=== PATIENT | male | born 1960 | race Caucasian/White ===

== ENCOUNTER 2019-08-15 11:49 | Inpatient (IN) | payer OTHER ==
[~2019-08-15] VITALS: Ht 182.9 cm; Wt 100.6 kg
[2019-08-15] VITALS (441 sets, daily range): BP systolic 96–97; BP diastolic 61–85; PULSE 118–133; TEMP 98.2–99.2; O2SAT 71–100
[2019-08-15 12:15] LABS: INR 1.4 (0.8-3.0); PROTHROMBIN TIME 16.9 SECONDS (9.7-12.8)
[2019-08-15 12:18] LABS: MEAN CELL VOLUME 92 fl (80.0-100.0); MEAN CORPUSCULAR HGB CONC 34 g/dl (33.0-37.0); MEAN PLATELET VOLUME 10.2 fl (7.4-10.4); PLATELET COUNT 236 K/mm3 (130-400); RED BLOOD COUNT 5.91 M/mm3 (4.20-5.60); REDCELL DISTRIBUTION WIDTH-CV 22.4 % (11.5-14.5)
[2019-08-15 12:21] LABS: HEMATOCRIT 54.5 % (42.0-52.0); HEMOGLOBIN 18.3 g/dl (13.5-18.0); MEAN CORPUSCULAR HEMOGLOBIN 31 pg (27.0-31.0)
[2019-08-15 12:29] LABS: ALBUMIN 3.5 gm/dL (3.5-5.0); BILIRUBIN,TOTAL 9.4 mg/dL (0.0-1.0); CALCIUM 8.7 mg/dL (8.4-10.2); CREATININE, serum 1.1 (0.66-1.25); POTASSIUM 4.5 mmol/L (3.4-5.0); TOTAL PROTEIN 7.6 gm/dL (6.4-8.2)
[2019-08-15 12:42] LABS: ANISOCYTOSIS 2+; BAND 7 % (0-10); LYMPHOCYTE 4 % (20.0-51.0); NEUTROPHILS 75 % (42.0-75.2); PLATELET ESTIMATE NORMAL (NORMAL); TROPONIN-I 0.042 ng/mL (0.000-0.035)
--- NOTE | 2019-08-15 13:47 | NUR ---
Pt admitted to ICU bed 6 at this time from ED. Pt arrived via stretcher and placed on patient monitor upon arrival. Pt denies pain or any other discomforts at this time. Pt oriented to room environment/surroundings. Tamra Fofana APRN, present in unit and notified on Pt's arrival. Bed in low position, call light within reach, will continue to monitor.
[2019-08-15 14:14] LABS: MAGNESIUM 2.1 mg/dL (1.6-2.3)
[2019-08-15 14:42] LABS: COLLECTION METHOD CLEAN CATCH
[2019-08-15 14:45] LABS: TSH w REFLEX 5.82 uIU/mL (0.465-4.680)
[2019-08-15 14:52] LABS: PH 6 (5-8); SQUAMOUS EPITHELIAL None Seen /hpf; URINE APPEARANCE Clear; URINE BACTERIA None Seen /hpf; URINE BILIRUBIN Negative (NEGATIVE); URINE BLOOD Negative (NEGATIVE); URINE COLOR Yellow; URINE GLUCOSE Negative (NEGATIVE); URINE KETONE Negative (NEGATIVE); URINE LEUKOCYTE ESTERASE Negative (NEGATIVE); URINE NITRATE Negative (NEGATIVE); URINE PROTEIN(semi-quant) Negative (NEGATIVE); URINE RBC None Seen /hpf; URINE UROBILINOGEN >=4.0 mg/dL (NEGATIVE)
[2019-08-15] MEDS ORDERED: ASPIRIN 81M81 MG/TA2 PO (15:45)
--- NOTE | 2019-08-15 18:03 | NUR ---
Admission assessment complete at this time. Plan of care reviewed at bedside with patient. Additional time taken to address any other needs or concerns. Vitals stable at this time. Denies pain or any other discomforts. Bed in low position, call light within reach, will continue to monitor.
--- NOTE | 2019-08-15 19:08 | NUR ---
Bedside report given to ADAM Wu.
[2019-08-16] VITALS (751 sets, daily range): BP systolic 90–117; BP diastolic 69–97; PULSE 102–136; TEMP 97.5–99.3; O2SAT 48–100
[2019-08-16 05:37] LABS: HEMATOCRIT 48.7 % (42.0-52.0); HEMOGLOBIN 16.5 g/dl (13.5-18.0); MEAN CELL VOLUME 90 fl (80.0-100.0); MEAN CORPUSCULAR HEMOGLOBIN 30 pg (27.0-31.0); MEAN CORPUSCULAR HGB CONC 34 g/dl (33.0-37.0); MEAN PLATELET VOLUME 10.1 fl (7.4-10.4); PLATELET COUNT 225 K/mm3 (130-400); RED BLOOD COUNT 5.43 M/mm3 (4.20-5.60); REDCELL DISTRIBUTION WIDTH-CV 22.3 % (11.5-14.5)
[2019-08-16 05:47] LABS: ALBUMIN 2.7 gm/dL (3.5-5.0); BILIRUBIN,TOTAL 7.3 mg/dL (0.0-1.0); CREATININE, serum 0.96 (0.66-1.25); MAGNESIUM 1.9 mg/dL (1.6-2.3); PHOSPHOROUS 3.6 mg/dL (2.5-4.5); POTASSIUM 3.4 mmol/L (3.4-5.0)
[2019-08-16 06:41] LABS: ANISOCYTOSIS 2+; BAND 3 % (0-10); EOSINOPHIL 1 % (0-4); LYMPHOCYTE 2 % (20.0-51.0); NEUTROPHILS 81 % (42.0-75.2); PLATELET ESTIMATE NORMAL (NORMAL)
--- NOTE | 2019-08-16 07:00 | NUR ---
Report recieved from ADAM Wu. Patient resting in bed at this time and denies needs. Care assumed.
--- NOTE | 2019-08-16 07:00 | NUR ---
Report given to ADAM Ramos.
--- NOTE | 2019-08-16 07:10 | NUR ---
Dr. Bautista rounds at this time. POC discussed with patient to include tentative plan for KELLY with cardioversion in AM. Will postpone until tomorrow to accomodate thoracentesis today.
--- NOTE | 2019-08-16 09:37 | NUR ---
Dr. Ramey rounds at this time. Orders as entered CPOE.
--- NOTE | 2019-08-16 11:12 | NUR ---
Initial visit; Patient thanked Utility Gelatin Maker for stopping though declined spiritual care.
--- NOTE | 2019-08-16 11:32 | NUR ---
GOGGLES ASSEMBLER student met with the patient to complete initial intake. The patient lives in [place] with his sister, Connie . The patient does not use DME and reports independence with ADLs. The patient does not have a PCP and the patient requested GOGGLES ASSEMBLER student contact Connie, to discuss PCP and pharmacy. GOGGLES ASSEMBLER student contacted Connie. The patient is to see Renetta Arce with [facility] in for follow-up appointments and patient is to receive medications at [facility] in . The patient does not have advanced directives in the EMR and was not interested in DPOA-HC form at this time. director of women's services will continue to follow to ensure a safe discharge.
[2019-08-16 11:55] LABS: INR 1.4 (0.8-3.0); PROTHROMBIN TIME 15.9 SECONDS (9.7-12.8)
[2019-08-16 11:58] LABS: PARTIAL THROMBOPLASTIN TIME 35.7 SECONDS (26.0-37.0)
--- NOTE | 2019-08-16 15:30 | NUR ---
Bedside thoracentesis performed by Dr. Casiano with US tech at bedside. Patient signed consent obtained by MD and tech.
[2019-08-16 16:33] LABS: PLEURAL FLUID RBC 20000 /mm3 (0-0); PLEURAL FLUID WBC 6665 /mm3
[2019-08-16 16:35] LABS: PLEURAL FLUID COLOR AMBER
[2019-08-16 16:36] LABS: GLUCOSE,PLEURAL FLUID 60 mg/dL; PLEURAL FLUID APPEARANCE HAZY; TOTAL PROTEIN,PLEURAL FLUID 2.7 gm/dL
--- NOTE | 2019-08-16 19:15 | NUR ---
RECEIVED REPORT FROM ADAM MARTIN. PT SITTING UP IN CHAIR FINISHING DINNER. 2L VIA NC ON. VSS. HR NOTED TO BE 120-130s. WILL MONITOR CLOSELY. CALL LIGHT WITHIN REACH. NO ACUTE S/S OF DISTRESS NOTED.
[2019-08-17] VITALS (571 sets, daily range): BP systolic 90–118; BP diastolic 65–100; PULSE 86–113; TEMP 98–98.3; O2SAT 51–100
[2019-08-17 04:51] LABS: HEMATOCRIT 45.4 % (42.0-52.0); HEMOGLOBIN 15.4 g/dl (13.5-18.0); MEAN CELL VOLUME 91 fl (80.0-100.0); MEAN CORPUSCULAR HEMOGLOBIN 31 pg (27.0-31.0); MEAN CORPUSCULAR HGB CONC 34 g/dl (33.0-37.0); MEAN PLATELET VOLUME 10.2 fl (7.4-10.4); PLATELET COUNT 203 K/mm3 (130-400); RED BLOOD COUNT 4.99 M/mm3 (4.20-5.60); REDCELL DISTRIBUTION WIDTH-CV 21.8 % (11.5-14.5)
--- NOTE | 2019-08-17 05:00 | NUR ---
DISCUSSED WITH BUD, SHELDON, EDUARD, AND NOTIFIED DR TYLER ABOUT PT'S SOFT SBP 85-92 THORUGHOUT THE NIGHT. PT EASILY AROUSABLE. NEW ORDERS RECEIVED. SEE MAR.
[2019-08-17 05:05] LABS: ALBUMIN 2.5 gm/dL (3.5-5.0); BILIRUBIN,TOTAL 5.5 mg/dL (0.0-1.0); CALCIUM 7.7 mg/dL (8.4-10.2); CREATININE, serum 0.91 (0.66-1.25); PHOSPHOROUS 3.5 mg/dL (2.5-4.5); POTASSIUM 3.5 mmol/L (3.4-5.0); TOTAL PROTEIN 5.5 gm/dL (6.4-8.2)
[2019-08-17 05:44] LABS: INR 1.4 (0.8-3.0); PROTHROMBIN TIME 16.3 SECONDS (9.7-12.8)
[2019-08-17 06:03] LABS: ANISOCYTOSIS 2+; BAND 6 % (0-10); LYMPHOCYTE 6 % (20.0-51.0); NEUTROPHILS 74 % (42.0-75.2); PLATELET ESTIMATE NORMAL (NORMAL)
--- NOTE | 2019-08-17 09:10 | NUR ---
CONTACT MADE WITH ANESTHESIA AND US TO COORDINATE KELLY/CARDIOVERSION. PROCEDURE PLANNED FOR AROUND 929. DR CASTILLO AWARE. CONSENT SIGNED AND PLACED ON CHART.
--- NOTE | 2019-08-17 09:40 | NUR ---
KELLY/CARDIOVERSION STARTED BY DR CASTILLO, RUDOLPH RAIN CRNA, [facility], AND FRANCESCA MEDINA. SEDATION PERFORMED BY DAISY. DURING KELLY DR CASTILLO STATES THERE IS AN ABNORMALITY THAT RESEMEBLES AN EMBOLISM SO THEY WILL NOT BE PERFORMING CARDIOVERSION. PT TOLERATED PROCEDURE. PT RECOVERED WELL. PT DROWSY BUT AROUSABLE.
--- NOTE | 2019-08-17 14:35 | NUR ---
PT BEGAN C/O SOB WHILE SITTING UP IN CHAIR. I ASKED PATIENT IF HE WAS FEELING OK AND HE STATED "NO". HE THEN TOLD ME IT FELT LIKE HIS HEART WAS MAKING HIM SHORT OF BREATH. PATIENT NOTED TO BY CYANOTIC TO NOSE, LOWER EXTREMITIES, AND FINGER TIPS. RETURNED PATIENT TO BED D/T SOB. CALLED DR CASTILLO AND HE STATED TO GIVE PATIENT LASIX 20MG IV NOW AND DIGOXIN 0.5MG. PATIENT'S HR AROUND 120, BP 101/90. RESP 26, O2 SAT 90% ON 2L. I RETURNED PATIENT TO BED AND GAVE MEDS PATIENT STILL LOOKED ACUTELY ILL, TACHYPNEIC, AND CYANOTIC. LUNG SOUNDS VERY DIMINISHED TO LEFT LUNG COSTELLO. RIGHT LUNG COSTELLO CLEAR TO UPPER LOBES, DIM TO BASE. DR FAITH ON UNIT AT TIME. I ASKED DR FAITH IF HE WOULD COME SEE PATIENT AND STATED THAT HE LOOKED BADLY. DR FAITH STATED HE IS NOT CONSULTED ON PATIENT SO HE CANNOT COME SEE PATIENT. I THEN CALLED DR CASTILLO AND UPDATED HIM THAT PATIENT APPEARS WORSE. BP 90S, HR 125, RESP 30, O2 SAT 88% ON 4L NC. PT CONTINUES TO HAVE INCREASED WORK OF BREATHING. DR CHILEL CALLED. STAT CHEST XRAY ORDERED ALONG WITH EKG. DR CHILEL ARRIVED TO ASSESS PATIENT SHORTLY AFTER CALLING HIM. ONCE XRAY OBTAINED DR CHILEL AND DR CASTILLO PRESENT AND CONFIRMED PATIENT HAS PNEUMOTHORAX TO LEFT LUNG. DR CHILEL WENT OVER TO SPEAK WITH RADIOLOGY FOR CHEST TUBE INSERTION. IV TO LEFT FORERAM REMOVED IT BEGAN LEAKING, IV TO RIGHT AC BEGAN LEAKING. 20G INSERTED TO LEFT AC. ELIAS PLACED. SPOKE WITH OUSMANE MEDINA REGARDING PATIENT. TRANSPORTED PATIENT VIA BED WITH TRANSPORT MONITOR TO RADIOLOGY FOR CT GUIDED CHEST TUBE INSERTION.
--- NOTE | 2019-08-17 15:00 | NUR ---
pt here per bed. Pt transferred to ct table in supine position. Monitor in place from ICU. Continued to monitor. BP's increased to every 5 minutes.
--- NOTE | 2019-08-17 15:05 | NUR ---
Dr Casiano into room and talks with pt.
--- NOTE | 2019-08-17 15:16 | NUR ---
Chest tube placed by Dr Casiano. Dr Casiano pulling air and yellow drainage from left lung. Dr Casiano wants pt moved to bed and sitting upright to continue to remove air from lung.
--- NOTE | 2019-08-17 15:35 | NUR ---
PATIENT RETURNED VIA BED BY OUSMANE MEDINA. PATIENT SITTING UP AND APPEARED MUCH MORE RELAXED. PT NO LONGER HAVING DIFFICULTY BREATHING. HR UPON RETURN 105, RESP 10, O2 SAT 99% ON 2L NC, BP 119/91. PT HAS PLEUREX DRAIN IN PLACE TO LEFT ANTERIOR CHEST. QUINCY WITH AIVS PRESENT TO INSERT PICC LINE.
[2019-08-17 17:01] LABS: PARTIAL THROMBOPLASTIN TIME 34.2 SECONDS (26.0-37.0)
--- NOTE | 2019-08-17 19:10 | NUR ---
RECEIVED REPORT FROM ADAM MA. PT LYING IN BED RESTING WITH EYES CLOSE BUT DOES SPEAK UP WITH NURSES DURING SHFIT CHANGE. DENIES ANY NEEDS AT THIS TIME. VSS. CALL LIGHT WITHIN REACH. FC PATENT AND DRAINING TO GRAVITY. PT ON 2L VIA NC.
[2019-08-18] VITALS (750 sets, daily range): BP systolic 92–111; BP diastolic 61–76; PULSE 75–108; TEMP 98.2–99.8; O2SAT 82–100
[2019-08-18 03:43] LABS: BASO % 0.2 % (0.0-2.0); EOS # 0.2 (0.0-0.7); EOS % 1.6 % (0-4.0); GRAN # 9.5 (1.4-6.5); GRAN % 73.9 % (42.2-75.2); HEMATOCRIT 42.9 % (42.0-52.0); HEMOGLOBIN 14.7 g/dl (13.5-18.0); LYMPH % 7.8 % (20.0-51.0); MEAN CELL VOLUME 89 fl (80.0-100.0); MEAN CORPUSCULAR HEMOGLOBIN 30 pg (27.0-31.0); MEAN CORPUSCULAR HGB CONC 34 g/dl (33.0-37.0); MEAN PLATELET VOLUME 10.1 fl (7.4-10.4); MONO % 15.9 % (1.7-9.3); PLATELET COUNT 211 K/mm3 (130-400); RED BLOOD COUNT 4.84 M/mm3 (4.20-5.60); REDCELL DISTRIBUTION WIDTH-CV 21.2 % (11.5-14.5)
[2019-08-18 03:53] LABS: CALCIUM 7.6 mg/dL (8.4-10.2); CREATININE, serum 1.06 (0.66-1.25); MAGNESIUM 2.1 mg/dL (1.6-2.3); POTASSIUM 3.5 mmol/L (3.4-5.0)
[2019-08-18 09:44] LABS: ALBUMIN 2.6 gm/dL (3.5-5.0); BILIRUBIN,TOTAL 5.4 mg/dL (0.0-1.0); CALCIUM 7.5 mg/dL (8.4-10.2); CREATININE, serum 1.01 (0.66-1.25); POTASSIUM 4.3 mmol/L (3.4-5.0); TOTAL PROTEIN 5.5 gm/dL (6.4-8.2)
--- NOTE | 2019-08-18 20:04 | NUR ---
Sitting in chair in room. Assessment complete. Bases bilaterally diminished otherwise clear. Heart sounds irregular. S1 and S2 heard. Pulses audiable with doppler, felt faint with touch. Bilateral lower leg edema +3. Trunk edema +2. Upper extremity edema +1. PICC to right upper arm has heparin infusing per protocol. Denies pain at this time. BP 90s/70s. Assisted patient back to bed at this time. Denies other needs. Call light in reach.
--- NOTE | 2019-08-18 22:15 | NUR ---
Provided patient with snack. Denies other needs at this time. Call light in reach.
--- NOTE | 2019-08-18 23:38 | NUR ---
Assessment completed. Right lower lobe crackles. Right upper lobe clear. Left lung diminshed. Denies shortness of breath. Voided 450 ml of dark yellow urine. Otherwise no changes in previous assessment. Denies pain. Call light in reach.
[2019-08-19] VITALS (500 sets, daily range): BP systolic 98–192; BP diastolic 48–79; PULSE 75–90; TEMP 97.6–98.6; O2SAT 68–100
--- NOTE | 2019-08-19 00:59 | NUR ---
No change in heparin dosing at goal. Verified by Sanna MEDINA
--- NOTE | 2019-08-19 04:41 | NUR ---
Assessment complete. Upper lobes bilaterally clear. Right lower lobe crackles. Left lower lobe diminshed. Otherwise no changed from previous assessment. Call light in reach. Denies pain.
[2019-08-19 04:53] LABS: HEMATOCRIT 41.7 % (42.0-52.0); HEMOGLOBIN 13.9 g/dl (13.5-18.0); MEAN CELL VOLUME 93 fl (80.0-100.0); MEAN CORPUSCULAR HEMOGLOBIN 31 pg (27.0-31.0); MEAN CORPUSCULAR HGB CONC 33 g/dl (33.0-37.0); MEAN PLATELET VOLUME 10.9 fl (7.4-10.4); PLATELET COUNT 263 K/mm3 (130-400); RED BLOOD COUNT 4.51 M/mm3 (4.20-5.60); REDCELL DISTRIBUTION WIDTH-CV 22.4 % (11.5-14.5)
--- NOTE | 2019-08-19 04:58 | NUR ---
Heimlich valve clamped at this time.
[2019-08-19 05:07] LABS: CALCIUM 7.3 mg/dL (8.4-10.2); CREATININE, serum 0.89 (0.66-1.25); POTASSIUM 3.4 mmol/L (3.4-5.0)
--- NOTE | 2019-08-19 06:40 | NUR ---
Patient had uneventful night. Heimlich valve clamped at 0500 as ordered. Denies needs this AM. Call light in reach.
--- NOTE | 2019-08-19 07:33 | NUR ---
Report given to ADAM Vance
[2019-08-19 11:47] LABS: INR 1.3 (0.8-3.0); PROTHROMBIN TIME 15.6 SECONDS (9.7-12.8)
--- NOTE | 2019-08-19 13:21 | NUR ---
The patient is needing Eliquis. Dr. Bautista provided a 30 day supply of this medication and it is being kept in the pharmacy department. The patient will need to take this with him at discharge. BLEACH ANALYST student informed the patient's sister, Connie. The patient has orders to the medical floor and physical therapy was ordered. BLEACH ANALYST student set-up appointment at [facility] in [place] with Renetta Arce on Thursday, 08/26 10:00 am. BLEACH ANALYST student attempted to contact Connie about the appointment, left message. child and family services worker will continue to follow.
--- NOTE | 2019-08-19 14:19 | NUR ---
THORACENTESIS COMPLETE AT THIS TIME. PER HOSPITALIST CONTINUE HEAPARIN DRIP PER PREVIOUS ORDERS. HEPARIN XA ORDERED AT THIS TIME.
--- NOTE | 2019-08-19 15:37 | NUR ---
HEPARIN XA OBTAINED @ 1500 RESULTED @ 0.04. ACCORDING TO HIGH DOSE HEPARIN DRIP PROTOCOL NO CHANGE. HEPARIN XA SCHEDULED FOR 08/19/19 @ 2100.
--- NOTE | 2019-08-19 18:56 | NUR ---
Patient was trasferred from ICU. PATIENT IS ALERT AND ORIENTED X 4. right lower and upper lung lobes sound clear. Upper and Lower left lung is silent. 4+ edema bilateral on lower extremity. Patient has chest tube on the upper left chest. Patient is on fluid restriction of 1500mL in 24hrs. Patient took last dose of potassium for today around 5pm. Patient was educated on how to use Incentive Spirometry (IS), Patient was able to demonstrate how to use the IS. Patient is on 2L of O2. Heparin drip rate from ICU was 17mL/hr. No changes made. I put an order in for Hep Xa recheck at 2100.
--- NOTE | 2019-08-19 21:00 | NUR ---
Initial shift assessment done- sitting up in chair, Up in room on own, steady on feet. Heparin drip at 17cc/hr- having a Hepxa drawn at 2130. PICC to right upper arm. Understands to use urinal so we can measure urine output-getting lasix IV
[2019-08-20 03:49] VITALS: BP 97/59; PULSE 73; TEMP 97.7
[2019-08-20 04:24] LABS: HEMATOCRIT 41.5 % (42.0-52.0); HEMOGLOBIN 13.8 g/dl (13.5-18.0); MEAN CELL VOLUME 91 fl (80.0-100.0); MEAN CORPUSCULAR HEMOGLOBIN 30 pg (27.0-31.0); MEAN CORPUSCULAR HGB CONC 33 g/dl (33.0-37.0); PLATELET COUNT 216 K/mm3 (130-400); RED BLOOD COUNT 4.57 M/mm3 (4.20-5.60); REDCELL DISTRIBUTION WIDTH-CV 21.4 % (11.5-14.5)
[2019-08-20 04:33] LABS: ALBUMIN 2.4 gm/dL (3.5-5.0); BILIRUBIN,TOTAL 3.2 mg/dL (0.0-1.0); CALCIUM 7.3 mg/dL (8.4-10.2); CREATININE, serum 0.76 (0.66-1.25); POTASSIUM 3.7 mmol/L (3.4-5.0); TOTAL PROTEIN 5.4 gm/dL (6.4-8.2)
[2019-08-20 04:59] LABS: BAND 10 % (0-10); LYMPHOCYTE 8 % (20.0-51.0); NEUTROPHILS 65 % (42.0-75.2)
--- NOTE | 2019-08-20 05:36 | NUR ---
Did sleep for a few hours during the night- VSS, heparin at 18cc/hr at this time-next Hepxa at 1030 this morning. Did have 1250cc of urine out this shift. tele on- afib-controlled rate. o2 at 2L/nc
[2019-08-20 08:40] VITALS: BP 94/49; PULSE 96; TEMP 97.6
--- NOTE | 2019-08-20 11:00 | NUR ---
HEP-XA WAS DRAWN RATE WAS WNL PER PROTOCOL ORDERS NEXT REDRAW TO BE DONE NEXT MORNING. HEP-XA ORDER PLACED.
[2019-08-20 12:00] VITALS: BP 93/66; PULSE 75; TEMP 97.4
--- NOTE | 2019-08-20 13:00 | NUR ---
DR KRISHNA INTO PT ROOM TO REMOVE CHEST TUBE. PT TOLERATED WELL. DRESSING PLACED.
[2019-08-20 16:45] VITALS: BP 91/54; PULSE 84; TEMP 98.2
[2019-08-20 20:16] VITALS: BP 101/68; PULSE 95; TEMP 98.8
--- NOTE | 2019-08-20 20:45 | NUR ---
Initial shift assessment done- Denies pain- sitting up in the chair, Has heparin drip at 18cc/hr,,will get HepXA in AM-- o2 at 2L/nc, Lung sounds decreased in LLL, Pt states is overall feeling better
[2019-08-20 23:25] VITALS: BP 97/43; PULSE 83; TEMP 97.4
[2019-08-21 03:15] VITALS: BP 102/61; PULSE 81; TEMP 98.3
--- NOTE | 2019-08-21 05:35 | NUR ---
Very QUiet night- slept in the recliner all night- no requests,, heparing drip remains at 18cc/hr- lab was here and Hepxa was just drawn. Tele Afib, rate 70,s
[2019-08-21 06:38] LABS: HEMATOCRIT 38.5 % (42.0-52.0); HEMOGLOBIN 12.8 g/dl (13.5-18.0); MEAN CELL VOLUME 92 fl (80.0-100.0); MEAN CORPUSCULAR HEMOGLOBIN 31 pg (27.0-31.0); MEAN CORPUSCULAR HGB CONC 33 g/dl (33.0-37.0); MEAN PLATELET VOLUME 10.6 fl (7.4-10.4); PLATELET COUNT 209 K/mm3 (130-400); RED BLOOD COUNT 4.19 M/mm3 (4.20-5.60); REDCELL DISTRIBUTION WIDTH-CV 21.9 % (11.5-14.5)
[2019-08-21 06:52] LABS: CALCIUM 7.4 mg/dL (8.4-10.2); CREATININE, serum 0.7 (0.66-1.25); POTASSIUM 3.6 mmol/L (3.4-5.0)
[2019-08-21 08:32] LABS: BAND 24 % (0-10); EOSINOPHIL 3 % (0-4); LYMPHOCYTE 6 % (20.0-51.0); METAMYELOCYTE 1 % (0-0); NEUTROPHILS 53 % (42.0-75.2)
[2019-08-21 08:33] LABS: ANISOCYTOSIS 2+; PLATELET ESTIMATE NORMAL (NORMAL)
[2019-08-21 08:34] VITALS: BP 97/62; PULSE 76; TEMP 97.7
[2019-08-21 08:34] LABS: TARGET CELLS 1+
[2019-08-21 13:58] VITALS: BP 87/49; PULSE 86; TEMP 98.1
[2019-08-21 18:16] LABS: COLLECTION METHOD CLEAN CATCH
[2019-08-21 18:22] LABS: PH 8 (5-8); SQUAMOUS EPITHELIAL None Seen /hpf; URINE APPEARANCE Clear; URINE BACTERIA None Seen /hpf; URINE BILIRUBIN Negative (NEGATIVE); URINE BLOOD Negative (NEGATIVE); URINE COLOR Yellow; URINE GLUCOSE Negative (NEGATIVE); URINE KETONE Negative (NEGATIVE); URINE LEUKOCYTE ESTERASE Negative (NEGATIVE); URINE NITRATE Negative (NEGATIVE); URINE PROTEIN(semi-quant) Negative (NEGATIVE); URINE UROBILINOGEN >=4.0 mg/dL (NEGATIVE); URINE WBC 0-2 /hpf
[2019-08-21 18:27] VITALS: BP 97/48; PULSE 91; TEMP 98.4
--- NOTE | 2019-08-21 18:37 | NUR ---
PT report received at bedside from [place] MEDINA. PT is noted to have heparin infusing via PICC line, with eyes open and watching TV. No s/s of distress noted. Call light within reach and PT denies pain or wants/needs at this time. Will continue to monitor.
--- NOTE | 2019-08-21 18:58 | NUR ---
PT HAD UNEVENTFUL DAY. HAS BEEN UP AMBULATING IN [place] TODAY SOME. HEP GTT HAS BEEN WNL THIS DAY AND HASNT NEEDED CHANGES. HAS BEEN TAKING MEDS WELL W/O COMPLAINTS. DISCUSSED THE NEW MEDS. HAD ASKED A COUPLE OF TIMES ABOUT IF HES ABLE TO GET RID OF IV YET, REASSURED THAT HE HIS GETTING CLOSER TO DCING THE HEP GTT DUE TO STARTING THE ELIQUIS TODAY.
--- NOTE | 2019-08-21 19:11 | NUR ---
PT REQUESTED DRESSING OVER CHEST TUBE AREA TO BE REMOVED THIS EVENING, IT HAD BEEN ON LONGER THEN 24HR. THIS NURSE REMOVED WITHOUT DRESSING NOT NOTED BLEEDING TO AREA, APPLIED BANDAID.
[2019-08-21 19:23] VITALS: BP 90/60; PULSE 94; TEMP 99.4
--- NOTE | 2019-08-21 20:42 | NUR ---
PT resting in his recliner with TV on and no s/s of distress noted. PT is A&Ox4 and is easily able to make his wants/needs known. PT has been ambulating outside of room pushing his IV pole. PT remains in stable condition at this time with no c/o pain or discomfort. Will continue to monitor. Call light within reach. PT court recording monitor was changed earlier in shift D/T telemetry reporting bad signal even after pads were assesses, changed as needed, and all pads and lines attached and secure. After changing tele box the teletypesetter operator is notified and reports that everything is looking good at this time.
--- NOTE | 2019-08-21 22:55 | NUR ---
PT resting in recliner and states that he is going to sleep in the recliner and does not wish to get into bed. Call light remains within reach and PT presents with no s/s of cardiac distress at this time. Will continue to monitor.
[2019-08-21 23:09] VITALS: BP 90/48; PULSE 84; TEMP 99
--- NOTE | 2019-08-22 01:41 | NUR ---
PT resting in recliner with eyes closed and no s/s of distress noted. Will continue to monitor.
[2019-08-22 04:03] VITALS: BP 96/55; PULSE 63; TEMP 98.2
[2019-08-22 06:27] LABS: HEMATOCRIT 36.2 % (42.0-52.0); HEMOGLOBIN 11.9 g/dl (13.5-18.0); MEAN CELL VOLUME 91 fl (80.0-100.0); MEAN CORPUSCULAR HEMOGLOBIN 30 pg (27.0-31.0); MEAN CORPUSCULAR HGB CONC 33 g/dl (33.0-37.0); MEAN PLATELET VOLUME 10.4 fl (7.4-10.4); PLATELET COUNT 230 K/mm3 (130-400); RED BLOOD COUNT 3.96 M/mm3 (4.20-5.60); REDCELL DISTRIBUTION WIDTH-CV 21.3 % (11.5-14.5)
[2019-08-22 06:44] LABS: ALBUMIN 2.5 gm/dL (3.5-5.0); CALCIUM 7.5 mg/dL (8.4-10.2); CREATININE, serum 0.8 (0.66-1.25); MAGNESIUM 2.1 mg/dL (1.6-2.3); PHOSPHOROUS 2.7 mg/dL (2.5-4.5)
[2019-08-22 07:09] LABS: BAND 8 % (0-10); EOSINOPHIL 2 % (0-4); LYMPHOCYTE 12 % (20.0-51.0); MYELOCYTE 1 % (0-0); NEUTROPHILS 72 % (42.0-75.2); PLATELET ESTIMATE NORMAL (NORMAL); TEAR DROP CELLS 1+
[2019-08-22 07:28] VITALS: BP 98/60; PULSE 79; TEMP 98
--- NOTE | 2019-08-22 07:51 | NUR ---
UPON ENTERING THE ROOM PATIENT IS SITTING UP IN THE CHAIR FINISHING UP BREAKFAST AT THIS TIME. DENIES ANY SHORTNESS OF BREATH, NAUSEA, VOMITING, OR DIZZINESS. PATIENT HAS BILATERALLY LOWER LEG EDEMA. PATIENT IS NOT RECEIVING ANY POTASSIUM THIS MORNING HIS LEVEL IS AT 4.0. LUNG SOUNDS ARE ALL CLEAR EXCEPT THE LEFT LOWER LOBE THAT IS DIMINISHED. PATIENT IS READY TO HEAD HOME!
--- NOTE | 2019-08-22 09:04 | NUR ---
SPOKE WITH DR NOVA AND HE SAID TO HOLD THE ALDACTONE WITH THE BLOOD PRESSURE AT 98/60.
--- NOTE | 2019-08-22 11:33 | NUR ---
The patient is to discharge today, 08/22. JACOB met with the patient to review discharge plan. The patient plans to stay with his brother, Hector Covarrubias. SW notified pharmacy about the patient's Eliquis. SW to fax the patient's discharge orders to [facility] in [place]. No additional needs at this time.
[2019-08-22 12:06] VITALS: BP 95/66; PULSE 78; TEMP 97.9
[2019-08-22] MEDS ORDERED: ELIQUIS 5MG PO (15:28)
[2019-08-22] MEDS ORDERED: PACERONE400 MG PO (15:29)
[2019-08-22] MEDS ORDERED: LANOXIN 0.120.125 MG PO (15:30)
[2019-08-22] MEDS ORDERED: CORDARONE200 MG/TAB PO (15:30)
[2019-08-22] MEDS ORDERED: ALDACTONE 25MG25 M1 PO (15:31)
[2019-08-22] MEDS ORDERED: ASPIRIN E.C. 8181 MG PO (15:31)
[2019-08-22] MEDS ORDERED: LASIX 40MG TABL40 MG PO (15:32)
--- NOTE | 2019-08-22 16:40 | NUR ---
NURSE WENT OVER ALL DISCHARGE INSTRUCTIONS WITH THE PATIENT. PATIENT STATED THAT HE UNDERSTOOD ALL THE ORDERS AND INFORMATION GIVEN TO THE PATIENT. PATIENT TOOK DISCHARGE PAPERS WITH HIM AND WAS WHEELED OUT IN A WHEELCHAIR BY STAFF.
== END 2019-08-22 16:34 | disposition home or self-care (01) | DRG 291 ==
LOC: COL.ER 11:49 → ICU 12:52 → MEDICAL 08-19 16:49
PROVIDERS: Family Medicine; Internal Medicine; Internal Medicine Cardiovascular Disease; Nurse Practitioner Family; Physician Assistant; ADMIT Student in an Organized Health Care Education/Training Program
PROC: 0W9B3ZZ Drainage of Left Pleural Cavity, Percutaneous Approach (ICD-10-PCS; 2019-08-16)
PROC: 02HV33Z Insertion of Infusion Device into Superior Vena Cava, Percutaneous Approach (ICD-10-PCS; principal; 2019-08-17)
PROC: 0W9B30Z Drainage of Left Pleural Cavity with Drainage Device, Percutaneous Approach (ICD-10-PCS; 2019-08-17)
PROC: 5A2204Z Restoration of Cardiac Rhythm, Single (ICD-10-PCS; 2019-08-17)
PROC: 0W9B3ZZ Drainage of Left Pleural Cavity, Percutaneous Approach (ICD-10-PCS; 2019-08-19)
DX: I50.23 Acute on chronic systolic (congestive) heart failure (principal); J96.01 Acute respiratory failure with hypoxia; J18.9 Pneumonia, unspecified organism; R18.8 Other ascites; J90 Pleural effusion, not elsewhere classified; J93.9 Pneumothorax, unspecified; E87.2 Acidosis; I48.91 Unspecified atrial fibrillation; F17.210 Nicotine dependence, cigarettes, uncomplicated; K74.60 Unspecified cirrhosis of liver; F17.200 Nicotine dependence, unspecified, uncomplicated; I34.0 Nonrheumatic mitral (valve) insufficiency; I95.9 Hypotension, unspecified; I51.3 Intracardiac thrombosis, not elsewhere classified
CPT/HCPCS: 99223-AI; 99233-AI; 99239; A4314; A9284; C1751; J0282; J0456; J0696; J1160; J1644; J1650; J1940; J2250; J2704; J3480; J7030; J7050; J7060; P9047; Q9967

== ENCOUNTER → 2019-09-07 | Outpatient (CLI) | payer OTHER ==
[~2019-09-07] VITALS: Ht 182.9 cm; Wt 81.8 kg
[~2019-09-07] MED LIST: ALDACTONE 25MG25 M1 PO; ASPIRIN 81M81 MG/TA2 PO; ASPIRIN E.C. 8181 MG PO; CORDARONE200 MG/TAB PO; ELIQUIS 5MG PO; LANOXIN 0.120.125 MG PO; LASIX 40MG TABL40 MG PO; PACERONE400 MG PO; ZESTRIL 10MG10 MG PO
[2019-09-07 10:45] VITALS: BP 105/60; PULSE 88
[2019-09-07 11:54] VITALS: BP 91/50; PULSE 71
[2019-09-07 11:55] VITALS: BP 86/58; PULSE 78
[2019-09-07 11:56] VITALS: BP 102/54; PULSE 75
[2019-09-07 11:57] VITALS: BP 96/55; PULSE 78
== END ==
LOC: COL.CARD 10:21
DX: I50.22 Chronic systolic (congestive) heart failure (principal)
CPT/HCPCS: A9500; J2785

== ENCOUNTER 2019-10-26 08:35 | Day surgery (SDC) | payer SELFPAY ==
[~2019-10-26] VITALS: Ht 182.9 cm; Wt 84.7 kg
[2019-10-26] MEDS ORDERED: SYNTHROID 0.0.025 MG PO (09:17)
[2019-10-26] MEDS ORDERED: TOPROL XL 25MG25 MG PO (09:18)
[2019-10-26 10:01] VITALS: BP 121/79; PULSE 65; TEMP 97.8
[2019-10-26 10:06] LABS: HEMATOCRIT 38.5 % (42.0-52.0); HEMOGLOBIN 12.6 g/dl (13.5-18.0); MEAN CELL VOLUME 91 fl (80.0-100.0); MEAN CORPUSCULAR HEMOGLOBIN 30 pg (27.0-31.0); MEAN CORPUSCULAR HGB CONC 33 g/dl (33.0-37.0); MEAN PLATELET VOLUME 10.1 fl (7.4-10.4); PLATELET COUNT 258 K/mm3 (130-400); RED BLOOD COUNT 4.21 M/mm3 (4.20-5.60); REDCELL DISTRIBUTION WIDTH-CV 14.8 % (11.5-14.5)
[2019-10-26 10:17] LABS: INR 1.8 (0.8-3.0); PROTHROMBIN TIME 21.3 SECONDS (9.7-12.8)
[2019-10-26 10:52] LABS: CALCIUM 9.2 mg/dL (8.4-10.2); CREATININE, serum 1.27 (0.66-1.25); POTASSIUM 4.3 mmol/L (3.4-5.0)
[2019-10-26 11:20] VITALS: BP 104/75; PULSE 61; TEMP 97.8
[2019-10-26 11:23] LABS: THYROID STIMULATING HORMONE 6.52 uIU/mL (0.465-4.680)
[2019-10-26 11:35] VITALS: BP 103/90; PULSE 59; TEMP 98.6
[2019-10-26 11:50] VITALS: BP 97/66; PULSE 56
[2019-10-26 12:00] VITALS: BP 110/78; PULSE 53
--- NOTE | 2019-10-26 12:14 | NUR ---
DR CASTILLO IN TO SPEAK WITH PT IN REGARDS TO FINDING AND DISCHARGE INSTRUCTIONS. PT AWARE AND UNDERSTANDS. DR CASTILLO WILL CONTACT HIS CLINICAL NURSE TO PUT IN REFERRAL TO PCP IN REGARDS TO PTS ELEVATED TSH.
--- NOTE | 2019-10-26 12:19 | NUR ---
Pt's gag reflex intact and tolerating intake with no N/V. Discharge instructions reviewed with pt. Pt voiced understanding. Pt was discharged to private vehicle with discharge instructions in hand.
== END 2019-10-26 12:22 | disposition home or self-care (01) ==
LOC: COL.CAR 08:35
PROVIDERS: Internal Medicine Cardiovascular Disease
DX: I48.19 Other persistent atrial fibrillation (principal); I50.22 Chronic systolic (congestive) heart failure; I08.3 Combined rheumatic disorders of mitral, aortic and tricuspid valves; Z79.899 Other long term (current) drug therapy; Z79.82 Long term (current) use of aspirin; F17.220 Nicotine dependence, chewing tobacco, uncomplicated
CPT/HCPCS: J7030

== ENCOUNTER → 2020-11-08 | Outpatient (CLI) | payer OTHER ==
[~2020-11-08] MED LIST changes: +LASIX 20MG TABL20 MG PO; +SYNTHROID 0.0.025 MG PO; +TOPROL XL 25MG25 MG PO; +VELTASSA8.4 GM PO
== END ==
LOC: COL.RAD 13:02
DX: N18.4 Chronic kidney disease, stage 4 (severe) (principal)

== ENCOUNTER 2020-11-28 08:17 | Day surgery (SDC) | payer OTHER ==
[~2020-11-28] VITALS: Ht 182.9 cm; Wt 94.6 kg
[~2020-11-28 08:17] MED LIST changes: -VELTASSA8.4 GM PO
[2020-11-28 09:04] LABS: POTASSIUM 3.6 mmol/L (3.4-5.0)
[2020-11-28 09:05] LABS: INR 1.5 (0.8-3.0); PROTHROMBIN TIME 16.8 SECONDS (9.7-12.8)
[2020-11-28] MEDS ORDERED: LASIX 20MG TABL20 MG PO (09:17)
[2020-11-28 09:29] VITALS: BP 128/78; PULSE 66; TEMP 98.2
[2020-11-28] MEDS ORDERED: VELTASSA8.4 GM PO (09:29)
[2020-11-28 09:38] LABS: THYROID STIMULATING HORMONE 6.25 uIU/mL (0.465-4.680)
[2020-11-28 10:25] VITALS: BP 136/78; PULSE 50; TEMP 98.2
--- NOTE | 2020-11-28 10:25 | NUR ---
Report from Mikayla MEDINA. VSS. Will continue monitoring
[2020-11-28 10:40] VITALS: BP 125/84; PULSE 50; TEMP 98.2
[2020-11-28 10:55] VITALS: BP 109/79; PULSE 52; TEMP 98.2
[2020-11-28 11:10] VITALS: BP 111/79; PULSE 50; TEMP 98.2
[2020-11-28 11:25] VITALS: BP 103/71; PULSE 55; TEMP 98.2
--- NOTE | 2020-11-28 11:25 | NUR ---
INT discontinued intact. Discharge instructins given. Nan MEDINA transferred pt to private car by allan
== END 2020-11-28 11:33 | disposition home or self-care (01) ==
LOC: COL.CAR 08:17
PROVIDERS: Internal Medicine Cardiovascular Disease
DX: I48.91 Unspecified atrial fibrillation (principal); I21.3 ST elevation (STEMI) myocardial infarction of unspecified site; I08.3 Combined rheumatic disorders of mitral, aortic and tricuspid valves; I13.0 Hypertensive heart and chronic kidney disease with heart failure and stage 1 through stage 4 chronic kidney disease, or unspecified chronic kidney disease; N18.9 Chronic kidney disease, unspecified; I50.20 Unspecified systolic (congestive) heart failure; I87.2 Venous insufficiency (chronic) (peripheral); F17.200 Nicotine dependence, unspecified, uncomplicated; Z79.82 Long term (current) use of aspirin; Z79.899 Other long term (current) drug therapy; Z79.01 Long term (current) use of anticoagulants
CPT/HCPCS: J2704; J7120